=== PATIENT | male | born 1970 | race Caucasian/White ===

== ENCOUNTER 2016-11-05 11:46 | Emergency (ER) | payer MEDICARE ==
[2016-11-05 13:56] LABS: HEMOGLOBIN 16.1 gm/dl (14.0-17.5); RED BLOOD COUNT 5.38 M/UL (4.20-5.50); WHITE BLOOD COUNT 7.7 K/UL (4.5-11.0)
[2016-11-05 14:35] LABS: BUN/CREATININE RATIO 17 (0-10)
[2016-11-05 19:24] LABS: BUN/CREATININE RATIO 16 (0-10)
[2017-02-23] MEDS ORDERED: NEURONTIN 300300 MG PO (14:39)
[2017-02-23] MEDS ORDERED: NOVOLOG100 UNIT/1 SQ (14:40)
== END 2016-11-05 21:35 | disposition home or self-care (01) ==
LOC: ER1 11:46
PROVIDERS: Family Medicine
DX: E11.65 Type 2 diabetes mellitus with hyperglycemia (principal); E87.5 Hyperkalemia; F17.200 Nicotine dependence, unspecified, uncomplicated; Z79.4 Long term (current) use of insulin
CPT/HCPCS: 36415; 80048; 80053; 81001; 82962; 85025; 96361; 96372; 96374; 99284; J1815

== ENCOUNTER → 2017-01-27 | Outpatient (CLI) | payer MEDICARE ==
[~2017-01-27] MED LIST: NEURONTIN 300300 MG PO; NOVOLOG100 UNIT/1 SQ
== END ==
LOC: EXRD 09:31
DX: G89.29 Other chronic pain (principal); M79.642 Pain in left hand; M79.641 Pain in right hand
CPT/HCPCS: 73110; 73130

== ENCOUNTER 2021-04-21 00:30 | Emergency (ER) | payer MEDICARE ==
[2021-04-21 01:31] LABS: WHITE BLOOD COUNT 17.9 K/UL (4.5-11.0)
== END 2021-04-21 03:07 | disposition short-term general hospital (02) ==
LOC: ER1 00:30
PROVIDERS: Emergency Medicine
DX: I61.4 Nontraumatic intracerebral hemorrhage in cerebellum (principal); E87.2 Acidosis; E11.10 Type 2 diabetes mellitus with ketoacidosis without coma; Z20.822 Contact with and (suspected) exposure to COVID-19
CPT/HCPCS: 31500; 36600; 51702; 70450; 71045; 80053; 81001; 82803; 82962; 83605; 83735; 84100; 85025; 85610; 85730; 87040; 87086; 93005; 94002; 96374; 96375; 99285; J2704; J7070; U0002